=== PATIENT | male | born 1945 | race Caucasian/White ===

== ENCOUNTER 2022-01-20 11:48 | Inpatient (IN) ==
[2022-01-20 15:28] LABS: BASOPHILS # (AUTO) 0.1 X10^3/uL (0.0-0.1); BASOPHILS % (AUTO) 1.1 % (0.2-1.0); HEMOGLOBIN 11.9 g/dL (13.5-18.0); LYMPHOCYTES # (AUTO) 0.5 X10^3/uL (1.3-2.9); LYMPHOCYTES % (AUTO) 9.1 % (21.0-51.0); MEAN CORPUSCULAR HEMOGLOBIN 27.8 pg (27.0-34.0); MEAN CORPUSCULAR HGB CONC 34.2 g/dL (33.0-35.0); MEAN CORPUSCULAR VOLUME 81.5 fL (80.0-100.0); MEAN PLATELET VOLUME 7.6 fL (7.4-11.0); MONOCYTES # (AUTO) 0.3 x10^3/uL (0.3-0.8); MONOCYTES % (AUTO) 5.5 % (0.0-13.0); NEUTROPHILS # (AUTO) 4.9 x10^3/uL (2.2-4.8); NEUTROPHILS % (AUTO) 84.3 % (42.0-75.0); RED BLOOD COUNT 4.29 X10^6/uL (4.7-6.0); WHITE BLOOD COUNT 5.8 X10^3/uL (3.6-10.0)
[2022-01-20 15:36] LABS: ALBUMIN 3.2 g/dL (3.4-5.0); CALCIUM 9.3 mg/dL (8.5-10.1); CARBON DIOXIDE 28.3 mmol/L (21-32); COR CA(FOR HYPOALB) 9.9 mg/dL (8.5-10.1); CREATININE 2.33 mg/dL (0.70-1.30); TOTAL PROTEIN 6.8 g/dL (6.4-8.2)
[2022-01-20] MEDS: ZOSYN VIAL 3.375 GRAMS 3.375 G in NS 100 ML IV 100 ML IV SCH ×2 (16:02→20:47)
[2022-01-20] MEDS: LR 1,000 ML IV 1,000 ML IV SCH (16:02)
[2022-01-20 16:22] VITALS: BMI 23.6
[2022-01-20] MEDS: NovoLIN R (or HumuLIN R) SC PRN (20:48)
[2022-01-21] MEDS: ZOSYN VIAL 3.375 GRAMS 3.375 G in NS 100 ML IV 100 ML IV SCH ×4 (02:58→20:38)
[2022-01-21 03:39] LABS: BLOOD UREA NITROGEN 54 mg/dL (7-18); CALCIUM 8.4 mg/dL (8.5-10.1); CARBON DIOXIDE 26.6 mmol/L (21-32); CHLORIDE 101 mmol/L (98-107); CREATININE 2.57 mg/dL (0.70-1.30); SODIUM 136 mmol/L (136-145); eGFR NON BLACK RACES 26 (>60)
[2022-01-21] MEDS: LR 1,000 ML IV 1,000 ML IV SCH ×2 (04:35→17:24)
[2022-01-21] MEDS: FERROUS GLUCONATE PO SCH (17:24)
[2022-01-21] MEDS: BETAPACE AF PO SCH (20:38)
[2022-01-21 22:59] LABS: HEMATOCRIT 31.5 % (42.0-54.0); HEMOGLOBIN 10.6 g/dL (13.5-18.0)
[2022-01-21] MEDS ORDERED: HEPARIN SODIUM INJ 5000 UNITS IVP ONE (23:25)
--- NOTE | 2022-01-21 23:28 | NOTE.SOAP ---
Soap Note Note for Day of Date of Exam: 01/21/22 Subjective Data Subjective Data: Patient admitted with cellulitis of left great toe with open wound. Started on IV antibiotics. 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 History of kidney transplant and is on Prograf . 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 I have been unable to obtain CTA yet because of the creatinine level of 2.57. Otherwise stable Objective Data Temperature: 98.3 F Pulse Rate: 65 Respiratory Rate: 18 Blood Pressure: 111/42 O2 Sat by Pulse Oximetry: 98 Objective Data: As above . Wound stable being treated with IV antibiotics and Santyl. Assessment Assessment: 1.) Stop Coumadin and start IV heparin drip to help make transition to surgery easier. 2.) Hold diuretics and hydrate to try and get creatinine down so a CTA can be done. 3.) Obtain LE arterial doppler and ABIs . 4.) Continue IV antibiotics and Santyl.
[2022-01-21] MEDS: HEPARIN SODIUM IN D5W 25,000 UNITS/500 ML BAG IV PRN (23:43)
[2022-01-22] MEDS: ZOSYN VIAL 3.375 GRAMS 3.375 G in NS 100 ML IV 100 ML IV SCH ×4 (04:46→20:40)
[2022-01-22] MEDS: SYNTHROID 100 mcg TAB PO SCH (05:30)
[2022-01-22 05:48] LABS: BASOPHILS # (AUTO) 0.1 X10^3/uL (0.0-0.1); BASOPHILS % (AUTO) 1.3 % (0.2-1.0); EOSINOPHILS # (AUTO) 0.1 x10^3/uL (0.0-0.2); EOSINOPHILS % (AUTO) 1.3 % (0.9-2.9); HEMATOCRIT 32.7 % (42.0-54.0); HEMOGLOBIN 11.1 g/dL (13.5-18.0); LYMPHOCYTES # (AUTO) 1.2 X10^3/uL (1.3-2.9); LYMPHOCYTES % (AUTO) 18.3 % (21.0-51.0); MEAN CORPUSCULAR HEMOGLOBIN 27.4 pg (27.0-34.0); MEAN CORPUSCULAR HGB CONC 33.8 g/dL (33.0-35.0); MEAN CORPUSCULAR VOLUME 81.2 fL (80.0-100.0); MEAN PLATELET VOLUME 7.6 fL (7.4-11.0); MONOCYTES # (AUTO) 0.5 x10^3/uL (0.3-0.8); MONOCYTES % (AUTO) 8.7 % (0.0-13.0); NEUTROPHILS # (AUTO) 4.4 x10^3/uL (2.2-4.8); NEUTROPHILS % (AUTO) 70.4 % (42.0-75.0); RED BLOOD COUNT 4.03 X10^6/uL (4.7-6.0); RED CELL DISTRIBUTION WIDTH 16.1 % (11.6-16.5); WHITE BLOOD COUNT 6.3 X10^3/uL (3.6-10.0)
[2022-01-22] MEDS ORDERED: GLUTOSE 15 GEL ORAL PO PRN (05:54)
[2022-01-22 05:55] LABS: BLOOD UREA NITROGEN 48 mg/dL (7-18); CALCIUM 8.4 mg/dL (8.5-10.1); CHLORIDE 104 mmol/L (98-107); CREATININE 2.44 mg/dL (0.70-1.30); SODIUM 139 mmol/L (136-145); eGFR NON BLACK RACES 28 (>60)
[2022-01-22] MEDS ORDERED: GLUTOSE 15 GEL ORAL PO ONE (05:59)
[2022-01-22] MEDS: LR 1,000 ML IV 1,000 ML IV SCH ×2 (06:16→20:39)
--- NOTE | 2022-01-22 07:33 | RAD ---
HISTORYPRE-OPSTUDYCHEST, 1 VIEWCOMPARISONNone availableFINDINGSTrachea is midline. Heart size is enlarged with previous median sternotomy and CABG changes. Previous valve replacement likely mitral valve is noted. AICD is noted in expected position.There is moderate scarring, airspace opacity and blunting of the right costophrenic sulcus. The right upper lung and left lung are clear.Questionable tiny right apical pneumothorax versus calcified pleural parenchymal scarring of the lung apex.IMPRESSIONQuestionable small apical pneumothorax versus calcification and pleural scarring of the right lung apex. Consider correlation with chest CT for further evaluation prior to surgery.Atelectasis, infiltrate and scarring within the right lower lobe with a moderate right-sided pleural effusion.Cardiomegaly status post CABG and valve replacement.Electronically signed by: JAKE MCHUGH (January 22, 2022 07:32:27)
[2022-01-22] MEDS: COREG TAB 6.25 MG PO SCH ×2 (08:47→20:38)
[2022-01-22] MEDS: BETAPACE AF PO SCH ×2 (08:47→20:37)
[2022-01-22] MEDS: PROTONIX TAB 40 MG PO SCH (08:47)
[2022-01-22] MEDS: ZETIA TAB 10 MG PO SCH (08:48)
[2022-01-22] MEDS: ZESTRIL TAB 5 MG PO SCH (08:48)
[2022-01-22] MEDS: TACROLIMUS PO SCH (08:48)
[2022-01-22] MEDS ORDERED: ZAROXOLYN PO SCH (09:00)
[2022-01-22] MEDS ORDERED: NS 250 ML IV 250 ML IV ONE (09:04)
--- NOTE | 2022-01-22 15:24 | NOTE.SOAP ---
Soap Note Note for Day of Date of Exam: 01/22/22 Subjective Data Subjective Data: Doing well. Stable on Heparin drip .On IV antibiotics . Lexiscan stress test , LE arterial doppler , and ABIs still not performed yet. Creatinine still too high to perform CTA . Objective Data Temperature: 97.8 F Pulse Rate: 67 Respiratory Rate: 26 Blood Pressure: 99/61 O2 Sat by Pulse Oximetry: 99 Objective Data: Redness of left great toe unchanged . EXG has a paced rhythm. CXT shows possible apical pneumothorax , most likely apical thickening following surgery. Color flow ultrasound carried out by tx of both groins showing patent femoral arteries with very low flow velocity bilaterally of about 20 cm/sec. Consistent with severe aortic disease or sever bilateral iliac artery stenosis but neither would appear to be completely occluded. Assessment Assessment: Critical limb ischemia of both LE with non- healing wound to the left great toe. U/S shows evidence of severe flow limitation to both LE . Still with creatinine too high for dye load with transplanted kidney. On heparin drip. Has AICD in place with raced rhythm Stress test and LE ultrasound studies not yet performed . Plan Plan: Continue IV antibiotics and IV heparin. Will obtain Lexiscan stress test and LE arterial dopplers and ABIs . If stress test is negative will tentatively perform on table arteriogram and intervention to limit dye load.
[2022-01-22] MEDS: NovoLIN R (or HumuLIN R) SC PRN (17:30)
[2022-01-22] MEDS: FERROUS GLUCONATE PO SCH (17:56)
[2022-01-22] MEDS: SANTYL EXT SCH (17:56)
[2022-01-23] MEDS: ZOSYN VIAL 3.375 GRAMS 3.375 G in NS 100 ML IV 100 ML IV SCH ×4 (03:41→21:20)
[2022-01-23 05:20] LABS: BASOPHILS # (AUTO) 0.1 X10^3/uL (0.0-0.1); BASOPHILS % (AUTO) 1.3 % (0.2-1.0); EOSINOPHILS # (AUTO) 0.1 x10^3/uL (0.0-0.2); EOSINOPHILS % (AUTO) 0.9 % (0.9-2.9); HEMATOCRIT 30.8 % (42.0-54.0); HEMOGLOBIN 10.5 g/dL (13.5-18.0); LYMPHOCYTES # (AUTO) 0.8 X10^3/uL (1.3-2.9); LYMPHOCYTES % (AUTO) 12.9 % (21.0-51.0); MEAN CORPUSCULAR HEMOGLOBIN 27.8 pg (27.0-34.0); MEAN CORPUSCULAR VOLUME 81.7 fL (80.0-100.0); MEAN PLATELET VOLUME 7.5 fL (7.4-11.0); MONOCYTES # (AUTO) 0.6 x10^3/uL (0.3-0.8); MONOCYTES % (AUTO) 9.3 % (0.0-13.0); NEUTROPHILS # (AUTO) 4.8 x10^3/uL (2.2-4.8); NEUTROPHILS % (AUTO) 75.6 % (42.0-75.0); RED BLOOD COUNT 3.77 X10^6/uL (4.7-6.0); RED CELL DISTRIBUTION WIDTH 15.9 % (11.6-16.5); WHITE BLOOD COUNT 6.3 X10^3/uL (3.6-10.0)
[2022-01-23 05:25] LABS: CALCIUM 8.4 mg/dL (8.5-10.1); CARBON DIOXIDE 23.8 mmol/L (21-32); CREATININE 2.17 mg/dL (0.70-1.30)
[2022-01-23] MEDS: SYNTHROID 100 mcg TAB PO SCH (05:39)
[2022-01-23] MEDS: LR 1,000 ML IV 1,000 ML IV SCH ×4 (05:40→21:18)
[2022-01-23] MEDS: HEPARIN SODIUM IN D5W 25,000 UNITS/500 ML BAG IV PRN (05:40)
[2022-01-23] MEDS: PROTONIX TAB 40 MG PO SCH (08:39)
[2022-01-23] MEDS: ZESTRIL TAB 5 MG PO SCH (08:40)
[2022-01-23] MEDS: COREG TAB 6.25 MG PO SCH ×2 (08:40→21:19)
[2022-01-23] MEDS: ZETIA TAB 10 MG PO SCH (08:40)
[2022-01-23] MEDS: BETAPACE AF PO SCH ×2 (08:40→21:19)
[2022-01-23] MEDS: SANTYL EXT SCH (08:48)
--- NOTE | 2022-01-23 14:01 | VAS ---
HISTORYReason For StudySTUDYLOWER EXT ARTERIALCOMPARISONNoneTECHNIQUEMultiple edmonds scale and color flow Doppler images of the [right and left] lower extremity arterial system were obtained. Interrogation of the common femoral artery, superficial femoral artery, popliteal artery, and tibial arteries was performed.FINDINGSLeft lower extremity demonstrates biphasic waveforms in the common femoral artery with a transition to monophasic waveforms in the distal superficial femoral artery and popliteal artery. These findings suggest moderate peripheral vascular disease probably due to a central stenosis. Biphasic.IMPRESSIONModerate peripheral vascular above.Electronically signed by: CHICHI NICHOLAS (January 23, 2022 14:00:20)
[2022-01-23] MEDS: TACROLIMUS PO SCH (14:52)
--- NOTE | 2022-01-23 17:09 | NOTE.SOAP ---
Soap Note Note for Day of Date of Exam: 01/23/22 Subjective Data Subjective Data: Patient very stable . On IV antibiotics. On IV heparin. Had LE doppler and ABIs today. Creatinine is 2.17, still too high for CTA of aorta with runoff. Stress test cannot be done until Sunday as oracle r12 developer must be present for this test to be done . Objective Data Temperature: 97.8 F Pulse Rate: 65 Respiratory Rate: 26 Blood Pressure: 135/63 O2 Sat by Pulse Oximetry: 99 Objective Data: Redness left great toe improved . Wound much hat cleaner with use of Santyl. ABIs markedly elevated consistent with calcified vessels . Assessment Assessment: Critical limb ischemia left leg with non -healing wound and cellulitis . Probable b/l iliac artery stenosis vs possible aortic stenosis of distal aorta. Plan Plan: Continue heparin drip , IV antibiotics and wound care. If cardiac stress test negative will proceed with on table arteriogram and intervention of the le ft leg in order to limit the dye load in this patient with a transplanted kidney.
[2022-01-23] MEDS: FERROUS GLUCONATE PO SCH (17:53)
[2022-01-24] MEDS: ZOSYN VIAL 3.375 GRAMS 3.375 G in NS 100 ML IV 100 ML IV SCH ×4 (04:02→20:30)
[2022-01-24 04:55] LABS: CALCIUM 8.8 mg/dL (8.5-10.1); CARBON DIOXIDE 17.8 mmol/L (21-32); CREATININE 2.37 mg/dL (0.70-1.30)
[2022-01-24] MEDS ORDERED: HEPARIN SODIUM INJ 5000 UNITS IVP ONE (05:19)
[2022-01-24] MEDS: SYNTHROID 100 mcg TAB PO SCH (05:41)
[2022-01-24] MEDS: PULMICORT NEB TX 0.5 MG NEB SCH ×2 (08:27→21:03)
[2022-01-24] MEDS: LR 1,000 ML IV 1,000 ML IV SCH ×2 (09:04→22:05)
[2022-01-24] MEDS: PROTONIX TAB 40 MG PO SCH (09:05)
[2022-01-24] MEDS: ZESTRIL TAB 5 MG PO SCH (09:05)
[2022-01-24] MEDS: TACROLIMUS PO SCH (09:05)
[2022-01-24] MEDS: ZETIA TAB 10 MG PO SCH (09:05)
[2022-01-24] MEDS: COREG TAB 6.25 MG PO SCH ×2 (09:05→20:30)
[2022-01-24] MEDS: BETAPACE AF PO SCH (09:05)
[2022-01-24] MEDS: NovoLIN R (or HumuLIN R) SC PRN ×3 (10:40→21:01)
[2022-01-24] MEDS: DUONEB 0.5 MG/3 MG (3 mL) NEB SCH ×2 (13:30→21:03)
[2022-01-24] MEDS: FERROUS GLUCONATE PO SCH (17:10)
--- NOTE | 2022-01-24 20:33 | NOTE.SOAP ---
Soap Note Note for Day of Date of Exam: 01/24/22 Subjective Data Subjective Data: " Did not feel well this AM" He could not be more specific. Continues on IV antibiotics and IV heparin. For Lexiscan stress test in AM. Objective Data Temperature: 98.1 F Pulse Rate: 63 Respiratory Rate: 21 Blood Pressure: 124/60 O2 Sat by Pulse Oximetry: 96 Objective Data: Exam unchanged . Creatinine is 2.37 Assessment Assessment: Critical limb threatening ischemia left leg with non healing wound. Plan Plan: Continue as above . Lexiscan stress test tomorrow. Tentatively scheduled for left artery iliac stenting and intervention of arterial flow left leg. Will perform arteriogram in OR on table.
[2022-01-25] MEDS: HEPARIN SODIUM IN D5W 25,000 UNITS/500 ML BAG IV PRN (01:58)
[2022-01-25] MEDS: ZOSYN VIAL 3.375 GRAMS 3.375 G in NS 100 ML IV 100 ML IV SCH ×4 (02:40→23:08)
[2022-01-25] MEDS: DUONEB 0.5 MG/3 MG (3 mL) NEB SCH ×3 (06:29→21:00)
[2022-01-25 07:36] LABS: BASOPHILS % (AUTO) 0.7 % (0.2-1.0); EOSINOPHILS # (AUTO) 0.1 x10^3/uL (0.0-0.2); EOSINOPHILS % (AUTO) 1.1 % (0.9-2.9); HEMATOCRIT 29.6 % (42.0-54.0); HEMOGLOBIN 10.1 g/dL (13.5-18.0); LYMPHOCYTES # (AUTO) 0.6 X10^3/uL (1.3-2.9); LYMPHOCYTES % (AUTO) 10.7 % (21.0-51.0); MEAN CORPUSCULAR HEMOGLOBIN 27.8 pg (27.0-34.0); MEAN CORPUSCULAR VOLUME 81.6 fL (80.0-100.0); MEAN PLATELET VOLUME 8.2 fL (7.4-11.0); MONOCYTES # (AUTO) 0.4 x10^3/uL (0.3-0.8); MONOCYTES % (AUTO) 7.8 % (0.0-13.0); NEUTROPHILS # (AUTO) 4.2 x10^3/uL (2.2-4.8); NEUTROPHILS % (AUTO) 79.7 % (42.0-75.0); RED BLOOD COUNT 3.62 X10^6/uL (4.7-6.0); RED CELL DISTRIBUTION WIDTH 15.9 % (11.6-16.5); WHITE BLOOD COUNT 5.3 X10^3/uL (3.6-10.0)
[2022-01-25 07:48] LABS: ALBUMIN 2.3 g/dL (3.4-5.0); CALCIUM 8.8 mg/dL (8.5-10.1); CARBON DIOXIDE 26.3 mmol/L (21-32); COR CA(FOR HYPOALB) 10.2 mg/dL (8.5-10.1); CREATININE 2.44 mg/dL (0.70-1.30); TOTAL PROTEIN 5.9 g/dL (6.4-8.2)
[2022-01-25] MEDS ORDERED: HEPARIN SODIUM INJ 5000 UNITS IVP ONE (08:08)
[2022-01-25] MEDS: TACROLIMUS PO SCH (08:26)
[2022-01-25] MEDS: ZESTRIL TAB 5 MG PO SCH (08:27)
[2022-01-25] MEDS: PULMICORT NEB TX 0.5 MG NEB SCH ×2 (10:17→21:00)
[2022-01-25] MEDS: SYNTHROID 100 mcg TAB PO SCH (11:56)
[2022-01-25] MEDS: BETAPACE AF PO SCH (11:57)
[2022-01-25] MEDS: PROTONIX TAB 40 MG PO SCH (11:57)
[2022-01-25] MEDS: COREG TAB 6.25 MG PO SCH (11:57)
[2022-01-25] MEDS: ZETIA TAB 10 MG PO SCH (11:57)
[2022-01-25] MEDS ORDERED: NS 250 ML IV 250 ML IV ONE (12:01)
[2022-01-25] MEDS: LR 1,000 ML IV 1,000 ML IV SCH (12:04)
[2022-01-25] MEDS ORDERED: LEXISCAN IV ONE (13:12)
[2022-01-25] MEDS: NovoLIN R (or HumuLIN R) SC PRN ×2 (17:17→20:57)
[2022-01-25] MEDS: FERROUS GLUCONATE PO SCH (17:21)
[2022-01-25] MEDS ORDERED: SANTYL ONE (21:46)
--- NOTE | 2022-01-25 23:56 | NOTE.SOAP ---
Soap Note Note for Day of Date of Exam: 01/25/22 Subjective Data Subjective Data: Patient remains stable on Heparin drip and IV antibiotics. Redness of the left great toe nearly resolved. Lexiscan Stress test day shows marked decrease in ejection fraction to 25% with large fixed defect in the apical area. Small area of reversal ischemia in the septal region. Objective Data Pulse Rate: 62 Respiratory Rate: 20 Blood Pressure: 82/39 O2 Sat by Pulse Oximetry: 96 Objective Data: Stress test yielded no chest pain or shortness of breath. Small [address] depression Assessment Assessment: Abnormal stress test puts patient at increased risk however has limb threatening ischemia and will proceed with intervention of the left leg via IV sedation and local anesthesia. Resilts expalined to the patient . Cr=2.44 Plan Plan: Will proceed with on table arteriogram to limit dye load. Possible iliac stenting of the left leg, possibly atherectomy and angioplasty arteries left leg .
[2022-01-26] MEDS ORDERED: NS 500 ML IV 500 ML IV ONE ×2 (00:07→00:20)
[2022-01-26] MEDS: COREG TAB 6.25 MG PO SCH ×2 (00:21→09:46)
[2022-01-26] MEDS: LR 1,000 ML IV 1,000 ML IV SCH ×2 (01:42→03:55)
[2022-01-26 03:52] LABS: BASOPHILS % (AUTO) 1.2 % (0.2-1.0); EOSINOPHILS # (AUTO) 0.1 x10^3/uL (0.0-0.2); EOSINOPHILS % (AUTO) 1.6 % (0.9-2.9); HEMATOCRIT 29.2 % (42.0-54.0); HEMOGLOBIN 9.9 g/dL (13.5-18.0); LYMPHOCYTES # (AUTO) 0.6 X10^3/uL (1.3-2.9); LYMPHOCYTES % (AUTO) 15.3 % (21.0-51.0); MEAN CORPUSCULAR HEMOGLOBIN 27.7 pg (27.0-34.0); MEAN CORPUSCULAR VOLUME 81.5 fL (80.0-100.0); MEAN PLATELET VOLUME 8.1 fL (7.4-11.0); MONOCYTES # (AUTO) 0.4 x10^3/uL (0.3-0.8); MONOCYTES % (AUTO) 9.1 % (0.0-13.0); NEUTROPHILS # (AUTO) 2.9 x10^3/uL (2.2-4.8); NEUTROPHILS % (AUTO) 72.8 % (42.0-75.0); RED BLOOD COUNT 3.58 X10^6/uL (4.7-6.0); RED CELL DISTRIBUTION WIDTH 16.1 % (11.6-16.5)
[2022-01-26 03:55] LABS: ALBUMIN 2.1 g/dL (3.4-5.0); CALCIUM 8.5 mg/dL (8.5-10.1); CARBON DIOXIDE 20.4 mmol/L (21-32); CREATININE 2.4 mg/dL (0.70-1.30); TOTAL PROTEIN 5.5 g/dL (6.4-8.2)
[2022-01-26] MEDS: ZOSYN VIAL 3.375 GRAMS 3.375 G in NS 100 ML IV 100 ML IV SCH (05:21)
[2022-01-26] MEDS: DUONEB 0.5 MG/3 MG (3 mL) NEB SCH (05:50)
[2022-01-26] MEDS: SYNTHROID 100 mcg TAB PO SCH (06:12)
[2022-01-26] MEDS ORDERED: HEPARIN SODIUM IN D5W 0 UNITS/0 ML BAG ONE (06:47)
[2022-01-26] MEDS ORDERED: MARCAINE 0.5% ONE (06:47)
[2022-01-26] MEDS ORDERED: NS 1,000 ML IV 1,000 ML IV ONE (07:34)
[2022-01-26] MEDS ORDERED: ZOSYN VIAL 2.25 GRAMS 2.25 G in NS 100 ML IV 100 ML IV SCH (08:00)
[2022-01-26 08:32] LABS: CKMB % 3.6 % (<4); CREATINE KINASE MB 1.6 ng/mL (0-4.0)
[2022-01-26 08:53] LABS: CALCIUM 8.9 mg/dL (8.5-10.1); CARBON DIOXIDE 19.5 mmol/L (21-32); CREATININE 2.42 mg/dL (0.70-1.30)
[2022-01-26] MEDS: PULMICORT NEB TX 0.5 MG NEB SCH (09:23)
[2022-01-26] MEDS: NovoLIN R (or HumuLIN R) SC PRN ×2 (09:35→13:57)
[2022-01-26] MEDS: PROTONIX TAB 40 MG PO SCH (09:45)
[2022-01-26] MEDS: TACROLIMUS PO SCH (09:45)
[2022-01-26] MEDS: ZETIA TAB 10 MG PO SCH (09:45)
[2022-01-26] MEDS: ZESTRIL TAB 5 MG PO SCH (09:46)
[2022-01-26] MEDS: BETAPACE AF PO SCH (09:55)
--- NOTE | 2022-01-26 13:55 | DR.CONSULT ---
CONSULT Consultation for Day of: Date: 01/26/22 Chief Complaint Chief Complaint: Elevated troponin level Allergies Allergies Allergy/AdvReac Type Severity Reaction Status Date / Time atorvastatin [From Lipitor] Allergy Verified 01/20/22 14:04 History of Present Illness History of Present Illness: This is a pleasant 76-year-old white male whom I was called about today for consultation per surgeon Dr. Dalton. Patient is seen and examined and he looks to be doing well at this time. He reports no chest pain, shortness of breath, substernal pressure, diaphoresis nor radiation of pain to the left shoulder down the left arm. The concerns are for an elevated troponin level. The level is 212.8 and also noted his BNP is elevated at 2640. He does have an extensive history of coronary artery disease and chronic congestive heart failure. His architectural model maker is Dr. Guy in [place], [place]. His EKG is reviewed today and compared to the EKG done on 01/22/2022. After reviewing the 2 EKGs there is no significant change in today's EKG compared to the one done previously. He does have some nonspecific intraventricular conduction delay and left axis deviation. He had a cardiac nuclear medicine myocardial perfusion scan yesterday which was abnormal, there was seen regional wall motion abnormalities and a fixed defect with no uptake in the mid anterior wall and basal anterior wall and the anterior region and also seen in the mid anterolateral wall and basal inferolateral wall as well. There also was a mild reversible defect seen in the septal region. Severe left ventricular dysfunction with an ejection fraction 25% and evidence of anteroapical and anterolateral hypokinesis. It was concluded that this is a high risk study. Past Medical History Past Medical History: Anemia, CHF, Coronary Artery Disease, Diabetes, Dyslipidemia, GERD, Hypertension, Hypothyroidism and Renal Disease Additional Medical History: The patient only has 1 kidney Past Surgical History Surgical History: CABG/Valve Surgery Family History Family Medical History: Cancer and Hypertension Social History Does patient currently use any type of tobacco product: No Have you used tobacco products in the last 12 months: No Type of Tobacco Use: None Does any household member use tobacco: No Alcohol Use: None Drug Use: None Medications Home Medications: atorvastatin [From Lipitor] Allergy (Verified 01/20/22 14:04) CONTINUE taking the following medications carvedilol [Coreg] 6.25 mg PO BID 01/20/22 [History] clopidogrel [Plavix] 75 mg PO DAILY 01/20/22 [History] ezetimibe [Zetia] 10 mg PO DAILY 01/20/22 [History] ferrous sulfate 325 mg PO DAILY 01/20/22 [History] furosemide [Lasix] 20 mg PO PRN PRN 01/20/22 [History] insulin glargine U-300 conc [Toujeo SoloStar U-300 Insulin] 40 unit SUBCUT DAILY 01/20/22 [History] levothyroxine [Synthroid] 100 mcg PO DAILY 01/20/22 [History] lisinopril [Zestril] 5 mg PO DAILY 01/20/22 [History] metolazone 5 mg PO BID 01/20/22 [History] pantoprazole [Protonix] 40 mg PO DAILY 01/20/22 [History] sotalol [Betapace] 80 mg PO BID 01/20/22 [History] tacrolimus 0.5 mg PO HS 01/20/22 [History] tacrolimus [Prograf] 1 mg PO DAILY 01/20/22 [History] warfarin 20 mg PO HS 01/20/22 [History] insulin glargine U-300 conc [Toujeo SoloStar U-300 Insulin] 30 unit SUBCUT QAM 01/25/22 [History] Review of Systems Constitutional: No Symptoms Reported Eyes: No Symptoms Reported ENT: No Symptoms Reported Respiratory: No Symptoms Reported Cardiovascular: No Symptoms Reported Gastrointestinal: No Symptoms Reported Genitourinary: No Symptoms Reported Musculoskeletal: Foot Pain Skin: No Symptoms Reported Neurological: No Symptoms Reported Physical Exam Vital Signs: Temperature 97.5 F Pulse Rate [Radial] 63 Pulse Rate 67 Respiratory Rate 20 Blood Pressure [Right Arm] 160/74 Blood Pressure [Left Arm] 136/60 Blood Pressure 119/56 O2 Sat by Pulse Oximetry 96 Oriented: Normal, Time, Person and Place Eyes: Normal Ear: Normal Nose: Normal Throat: Normal Respiratory: Clear Throughout Cardiovascular: Normal : Normal Auscultation: Bowel Sounds: Normal Palpation: Normal Tenderness: Normal Skin: Normal Musculoskeletal: Normal Psychiatric: Normal Mood Description: Calm Affect: Normal Speech Pattern: Clear and Appropriate Plan (1) Elevated troponin: Status: Acute Narrative Support Text: The patient does have some congestive heart failure along with elevated troponin today. I suspect that the elevated troponin is more secondary to heart strain from congestive heart failure and decreased renal clearance given his advanced chronic kidney disease. And also the fact that he only has 1 kidney. However given the fact that he does have an abnormal nuclear stress perfusion scan from yesterday and a low ejection fraction of 25% he is a high risk candidate for surgery at this time. Plan: I recommended the patient have cardiac clearance done by cardiology prior to having surgery.
[2022-01-26 14:01] VITALS: BP 114/59
--- NOTE | 2022-01-30 16:58 | W.DIS.FURT ---
Summary of Discharge Discharge Summary of Date Date of Exam: 01/26/22 Admission Date Date of Admission: 01/20/22 Admission Diagnosis Hospital Course: 76 year old male who was seen at the [facility] in [facility] on January 20, 2022. Patient had been seen at the wound care clinic for several months previously for a non-healing wound to the medial aspect of the right great toe consistent with early gangrenous changes. The patient had no palpable femoral pulse in either low extremity nor did he have any palpable distal pulses. Cellulitis of the left great toe was present . He was admitted and placed on IV Heparin as he was already on Coumadin for a mechanical mitral valve replacement in the past . He was also started on IV antibiotics. His past medical history is significant for a transplanted kidney as well as a mitral valve replacement and bypass grafting of coronary vessels . On admission he had no chest pain and no shortness of breath. The patient was maintained on the Heparin drip and IV antibiotics and redness improved of the left great toe. In addition to the IV antibiotocs, , IV heparin he was to have pre-op evaluation in preparation for peripheral arterial intervention on the left leg. Right leg will also probably require intervention as well. CT aortogram with runoff showed evidence of significant disease of both lower extremities. Lexiscan Stress test showed evidence of old full thickness defect of the apical part of the left ventricle as well as mild reversal ischemia of the septum. The morning of procedure on the 25 of January he had persistent hypotension that responsed initially to IV fluid boluses but it could not be maintained above 90 mm Mercury.Lab values showed an elevated troponin and an elevated beta natriuretic peptide consistent with congestive heart failure and possible ischemia. . Because of hypotension the case was canceled. He continued to be without significant chest pain or shortness of breath. He was seen in consultation by Dr. Zavala and the patient was recommended for Cardiology evaluation. However, the patient decided to sign out against medical advice and did so. I have encouraged him to continue to take his medications as before, including Coumadin . He says he is going to see his toy stuffer who is currently in [place]. I hope to follow up with him in the near future and pending the cardiac evaluation will proceed with intervention of the left leg as he has severe ischemia with potential limb threatening loss of that leg. He also will require intervention of the right leg in the future. He had Carleneyl to the wound during his admission for treatment of the left great toe wound. Labs: Laboratory Last Values WBC 4.0 X10^3/uL (3.6-10.0) 01/26/22 03:35 RBC 3.58 X10^6/uL (4.7-6.0) L 01/26/22 03:35 Hgb 9.9 g/dL (13.5-18.0) L 01/26/22 03:35 Hct 29.2 % (42.0-54.0) L 01/26/22 03:35 MCV 81.5 fL (80.0-100.0) 01/26/22 03:35 MCH 27.7 pg (27.0-34.0) 01/26/22 03:35 MCHC 34.0 g/dL (33.0-35.0) 01/26/22 03:35 RDW 16.1 % (11.6-16.5) 01/26/22 03:35 Plt Count 130 X10^3/uL (150.0-450.0) L 01/26/22 03:35 MPV 8.1 fL (7.4-11.0) 01/26/22 03:35 Neut % (Auto) 72.8 % (42.0-75.0) 01/26/22 03:35 Lymph % (Auto) 15.3 % (21.0-51.0) L 01/26/22 03:35 [place] % (Auto) 9.1 % (0.0-13.0) 01/26/22 03:35 Eos % (Auto) 1.6 % (0.9-2.9) 01/26/22 03:35 Baso % (Auto) 1.2 % (0.2-1.0) H 01/26/22 03:35 Neut # (Auto) 2.9 x10^3/uL (2.2-4.8) 01/26/22 03:35 Lymph # (Auto) 0.6 X10^3/uL (1.3-2.9) L 01/26/22 03:35 [place] # (Auto) 0.4 x10^3/uL (0.3-0.8) 01/26/22 03:35 Eos # (Auto) 0.1 x10^3/uL (0.0-0.2) 01/26/22 03:35 Baso # (Auto) 0.0 X10^3/uL (0.0-0.1) 01/26/22 03:35 Absolute Nucleated RBC 0.0 /100WBC 01/26/22 03:35 PT 22.4 SECONDS (11.8-14.3) 01/25/22 20:55 INR Target Range - 01/25/22 20:55 INR 2.06 (0.8-1.3) H 01/25/22 20:55 APTT 69.3 SECONDS (22.9-36.5) H 01/26/22 09:45 PTT Comment - 01/26/22 09:45 Sodium 136 mmol/L (136-145) 01/26/22 07:49 Corrected Sodium 141 mmol/L (136-145) 01/26/22 07:49 Potassium 4.8 mmol/L (3.5-5.1) 01/26/22 07:49 Chloride 102 mmol/L (98-107) 01/26/22 07:49 Carbon Dioxide 19.5 mmol/L (21-32) L 01/26/22 07:49 BUN 43 mg/dL (7-18) H 01/26/22 07:49 Creatinine 2.42 mg/dL (0.70-1.30) H 01/26/22 07:49 Est GFR (MDRD) Af Amer 34 (>60) L 01/26/22 07:49 Est GFR (MDRD) Non-Af 28 (>60) L 01/26/22 07:49 Glucose 317 mg/dL (65-99) H 01/26/22 07:49 POC Glucose (mg/dL) 326 mg/dL (65-99) H 01/24/22 16:43 Calcium 8.9 mg/dL (8.5-10.1) 01/26/22 07:49 Corrected Calcium 10.0 mg/dL (8.5-10.1) 01/26/22 03:35 Total Bilirubin 0.50 mg/dL (0.2-1.0) 01/26/22 03:35 AST 13 Units/L (15-37) L 01/26/22 03:35 ALT 7 Units/L (12-78) L 01/26/22 03:35 Alkaline Phosphatase 67 Units/L (46-116) 01/26/22 03:35 Creatine Kinase 44 Units/L (39-308) 01/26/22 07:49 CK-MB (CK-2) 1.6 ng/mL (0-4.0) 01/26/22 07:49 CK/CKMB % Calc 3.6 % (<4) 01/26/22 07:49 Troponin I High Sens 212.8 ng/L (4.0-60.0) H* 01/26/22 07:49 B-Natriuretic Peptide 2640 pg/mL (0-79) H* 01/26/22 07:49 Total Protein 5.5 g/dL (6.4-8.2) L 01/26/22 03:35 Albumin 2.1 g/dL (3.4-5.0) L 01/26/22 03:35 Globulin 3.4 g/dL (2.5-4.5) 01/26/22 03:35 Albumin/Globulin Ratio 0.6 Ratio (1.1-2.1) L 01/26/22 03:35 SARS-CoV-2 (PCR) Negative (NEGATIVE) 01/20/22 16:20 Reason For Visit: AORTOILIAC OCCLUSIVE CRITICAL ISCHEMIA Discharge Date Discharge Date: 01/26/22 Discharge Diagnosis All Active Problems (Updated 01/30/22 @ 16:55 by Cory Dalton) 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 Pt is to keep follow up appointment as instructed and take medications as ordered. Discharge Medications Discharge Medications: atorvastatin [From Lipitor] Allergy (Verified 01/20/22 14:04) CONTINUE taking the following medications carvedilol [Coreg] 6.25 mg PO BID 01/20/22 [History] clopidogrel [Plavix] 75 mg PO DAILY 01/20/22 [History] ezetimibe [Zetia] 10 mg PO DAILY 01/20/22 [History] ferrous sulfate 325 mg PO DAILY 01/20/22 [History] furosemide [Lasix] 20 mg PO PRN PRN 01/20/22 [History] insulin glargine U-300 conc [Toujeo SoloStar U-300 Insulin] 40 unit SUBCUT DAILY 01/20/22 [History] levothyroxine [Synthroid] 100 mcg PO DAILY 01/20/22 [History] lisinopril [Zestril] 5 mg PO DAILY 01/20/22 [History] metolazone 5 mg PO BID 01/20/22 [History] pantoprazole [Protonix] 40 mg PO DAILY 01/20/22 [History] sotalol [Betapace] 80 mg PO BID 01/20/22 [History] tacrolimus 0.5 mg PO HS 01/20/22 [History] tacrolimus [Prograf] 1 mg PO DAILY 01/20/22 [History] warfarin 20 mg PO HS 01/20/22 [History] insulin glargine U-300 conc [Toujeo SoloStar U-300 Insulin] 30 unit SUBCUT QAM 01/25/22 [History] Follow up and Referral Follow Up: 1 Week (dr. dalton) Discharge Disposition Discharge Disposition: patient left Against medical advice Discharge Condition: Critical limb ischemia with left leg threatened amputation Discharge Plan Discharge Plan Hospital Course: 76 year old male who was seen at the [facility] in [facility] on January 20, 2022. Patient had been seen at the wound care clinic for several months previously for a non-healing wound to the medial aspect of the right great toe consistent with early gangrenous changes. The patient had no palpable femoral pulse in either low extremity nor did he have any palpable distal pulses. Cellulitis of the left great toe was present . He was admitted and placed on IV Heparin as he was already on Coumadin for a mechanical mitral valve replacement in the past . He was also started on IV antibiotics. His past medical history is significant for a transplanted kidney as well as a mitral valve replacement and bypass grafting of coronary vessels . On admission he had no chest pain and no shortness of breath. The patient was maintained on the Heparin drip and IV antibiotics and redness improved of the left great toe. In addition to the IV antibiotocs, , IV heparin he was to have pre-op evaluation in preparation for peripheral arterial intervention on the left leg. Right leg will also probably require intervention as well. CT aortogram with runoff showed evidence of significant disease of both lower extremities. Lexiscan Stress test showed evidence of old full thickness defect of the apical part of the left ventricle as well as mild reversal ischemia of the septum. The morning of procedure on the 25 of January he had persistent hypotension that responsed initially to IV fluid boluses but it could not be maintained above 90 mm Mercury.Lab values showed an elevated troponin and an elevated beta natriuretic peptide consistent with congestive heart failure and possible ischemia. . Because of hypotension the case was canceled. He continued to be without significant chest pain or shortness of breath. He was seen in consultation by Dr. Zavala and the patient was recommended for Cardiology evaluation. However, the patient decided to sign out against medical advice and did so. I have encouraged him to continue to take his medications as before, including Coumadin . He says he is going to see his toy stuffer who is currently in [place]. I hope to follow up with him in the near future and pending the cardiac evaluation will proceed with intervention of the left leg as he has severe ischemia with potential limb threatening loss of that leg. He also will require intervention of the right leg in the future. He had Santyl to the wound during his admission for treatment of the left great toe wound. Patient Disposition: 07 AGAINST MEDICAL ADVICE Condition: Stable Health Concerns: Post Hospitalization: new medications and changes needed to prevent readmission or further decline. Pt educated and given instructions on all concerns. Care Plan Goals: Problem: Infection Goal: Temperature within normal limits. Resolved infection. Instructions: Follow provided instructions. Follow up with primary physician as directed. Contact primary care physician or report to the closest Emergency Room if condition worsens. Plan of Treatment: Continue with present treatment and follow up plan. Pt is to keep follow up appointment as instructed and take medications as ordered. Prescriptions: No Action carvedilol [Coreg] 6.25 mg tablet 6.25 mg PO BID RF: 0 sotalol [Betapace] 80 mg tablet 80 mg PO BID RF: 0 metolazone 5 mg tablet 5 mg PO BID RF: 0 clopidogrel [Plavix] 75 mg tablet 75 mg PO DAILY RF: 0 levothyroxine [Synthroid] 100 mcg tablet 100 mcg PO DAILY RF: 0 pantoprazole [Protonix] 40 mg tablet,delayed release (DR/EC) 40 mg PO DAILY RF: 0 lisinopril [Zestril] 5 mg tablet 5 mg PO DAILY RF: 0 furosemide [Lasix] 20 mg tablet 20 mg PO PRN PRNRF: 0 tacrolimus [Prograf] 0.5 mg Capsule 1 mg PO DAILY RF: 0 ezetimibe [Zetia] 10 mg tablet 10 mg PO DAILY RF: 0 Toujeo SoloStar U-300 Insulin 300 unit/mL (1.5 mL) insulin pen 40 unit SUBCUT DAILY RF: 0 tacrolimus 0.5 mg Capsule 0.5 mg PO HS RF: 0 ferrous sulfate 325 mg (65 mg iron) Tablet 325 mg PO DAILY RF: 0 warfarin 5 mg Tablet 20 mg PO HS RF: 0 Toujeo SoloStar U-300 Insulin 300 unit/mL (1.5 mL) insulin pen 30 unit SUBCUT QAM RF: 0 Follow ups/Referrals Follow ups/Referrals: [facility] [Other] Cory Dalton [Primary Care Provider] - 1 WEEK Instructions Instructions: Fall Prevention in the Home, Adult, [id number], Wound Infection, [id number], Wound Care, Adult, How to Change Your Wound Dressing, Cellulitis, Adult, [id number] Stand Alone Forms: Precautions for COVID19, [facility], Patient Portal, Social Distancing Patient Education Addl Reference Links: Wound Infection [email or web address] [email or web address]=Male&[email or web address]=a&[email or web address]&[email or web address] [email or web address]=[email or web address]=[email or web address] [email or web address]
== END 2022-01-26 13:50 | disposition left against medical advice (07) | DRG 300 ==
LOC: MED/SURG 13:12 → ICU 01-21 22:55
PROVIDERS: ADMIT Surgery; ATTEND Surgery
DX: Z53.29 Procedure and treatment not carried out because of patient's decision for other reasons; R94.4 Abnormal results of kidney function studies; E11.51 Type 2 diabetes mellitus with diabetic peripheral angiopathy without gangrene; I74.09 Other arterial embolism and thrombosis of abdominal aorta; I95.89 Other hypotension; R77.8 Other specified abnormalities of plasma proteins; L03.032 Cellulitis of left toe; Z94.0 Kidney transplant status; Z20.822 Contact with and (suspected) exposure to COVID-19; E11.65 Type 2 diabetes mellitus with hyperglycemia; R79.1 Abnormal coagulation profile